=== PATIENT | female | born 1960 | race Caucasian/White ===

== ENCOUNTER 2018-01-23 06:20 | Observation (INO) | payer BC ==
[2018-01-23] MEDS: LACTATED RINGER'S 1,000 ML IV* (06:00)
[2018-01-23] MEDS ORDERED: BUPIVACAINE 0.5%/EPI (SDV) 30 ML INJ (07:05)
[2018-01-23] MEDS ORDERED: VASOPRESSIN 20 UNITS INJ (07:06)
[2018-01-23] MEDS ORDERED: SODIUM CL BACTERIOSTATIC 30 ML INJ (07:06)
[2018-01-23] MEDS ORDERED: MIDAZOLAM 1 MG/ML 2 ML INJ (07:37)
[2018-01-23] MEDS ORDERED: METOCLOPRAMIDE 10 MG INJ (07:38)
[2018-01-23] MEDS ORDERED: morphine SULFATE/PF (10 MG/10 ML) INJ (07:39)
[2018-01-23] MEDS ORDERED: BUPIVACAINE 0.75%/DEXT (SPINAL) 2 ML INJ (07:40)
[2018-01-23] MEDS: BUPIVACAINE 0.5%/EPI (SDV) 30 ML INJ INJ (08:25)
[2018-01-23] MEDS ORDERED: KETOROLAC 30 MG INJ IV (09:30)
[2018-01-23] MEDS ORDERED: NALOXONE (0.4 MG/ML) INJ IV (09:30)
[2018-01-23] MEDS ORDERED: HYDROmorphONE 0.5 MG/0.5 ML SYG IV ×2 (09:30)
[2018-01-23] MEDS ORDERED: DIPHENHYDRAMINE 50 MG INJ IV ×2 (09:30)
[2018-01-23] MEDS ORDERED: ONDANSETRON 4 MG INJ IV ×3 (09:30→10:00)
[2018-01-23] MEDS: metroNIDAZOLE 0.75% 70 GM VAG GEL VAG ×2 (09:30)
[2018-01-23] MEDS ORDERED: HYDROmorphONE 1 MG/ML SYG IV (09:30)
[2018-01-23] MEDS ORDERED: HYDROmorphONE (0.2 MG/ML) 10ML SYG IV ×3 (09:30)
[2018-01-23] MEDS ORDERED: MEPERIDINE 25 MG INJ IV (09:30)
[2018-01-23] MEDS ORDERED: PROPOFOL 20 ML (09:31)
[2018-01-23] MEDS ORDERED: CEFAZOLIN 1 GM INJ (09:31)
[2018-01-23] MEDS ORDERED: ONDANSETRON 4 MG INJ (09:31)
[2018-01-23] MEDS ORDERED: KETOROLAC 30 MG INJ (09:31)
[2018-01-23] MEDS ORDERED: EPHEDrine SULFATE 50 MG/5 ML SYG (09:37)
[2018-01-23] MEDS ORDERED: IBUPROFEN 600 MG TAB PO (10:00)
[2018-01-23] MEDS ORDERED: OXYCODONE/ACETAMINOPHEN (5/325) TAB PO (10:00)
[2018-01-23] MEDS: ACETAMINOPHEN 1000MG/100ML IV 100 ML IVPB (10:40)
[2018-01-23] MEDS: LACTATED RINGER'S 1,000 ML IV ×3 (12:39→23:35)
[2018-01-23] MEDS: CEFAZOLIN 2 GM/50 ML (PMX) 50 ML IVPB ×2 (14:53→21:58)
[2018-01-23] MEDS: ACETAMINOPHEN 325 MG TAB PO (23:46)
[2018-01-24] MEDS: KETOROLAC 30 MG INJ IV ×2 (03:12→11:53)
[2018-01-24 05:29] LABS: ADD MAN DIFF? NO; BASOPHILS % 0.4 % (0.0-2.0); EOSINOPHILS % 0.3 % (0.0-7.0); HEMATOCRIT 32.4 % (37.0-47.0); LYMPHOCYTES # 2.6 10^3/ul (0.8-2.9); LYMPHOCYTES % 33.7 % (15.0-51.0); MEAN CORPUSCULAR HEMOGLOBIN 31.9 pg (29.0-33.0); MEAN CORPUSCULAR VOLUME 93.9 fl (82.0-101.0); MONOCYTE # 0.5 10^3/ul (0.3-0.9); MONOCYTES % 6.4 % (0.0-11.0); NEUTROPHIL # 4.5 10^3/ul (1.6-7.5); NEUTROPHILS % 59.1 % (39.0-77.0); PLATELET COUNT 160 10^3/UL (140-415); RED BLOOD COUNT 3.45 10^6/ul (4.20-5.40); RED CELL DISTRIBUTION WIDTH 12.7 % (11.5-14.5)
[2018-01-24 05:29] LABS: WHITE BLOOD COUNT 7.7 10^3/ul (4.8-10.8)
[2018-01-24] MEDS: CEFAZOLIN 2 GM/50 ML (PMX) 50 ML IVPB (05:48)
[2018-01-24] MEDS: PANTOPRAZOLE 40 MG INJ IV (05:48)
[2018-01-24 05:59] LABS: ALANINE AMINOTRANSFERASE 26 IU/L (13-69); ALBUMIN 3.1 g/dl (3.3-4.9); ALBUMIN/GLOBULIN RATIO 1.06; ALKALINE PHOSPHATASE 62 IU/L (42-121); ANION GAP 12 (8-16); ASPARTATE AMINO TRANSFERASE 16 IU/L (15-46); BILIRUBIN,INDIRECT 0.3 mg/dl (0-1.1); BILIRUBIN,TOTAL 0.3 mg/dl (0.2-1.3); BLOOD UREA NITROGEN 12 mg/dl (7-20); CALCIUM 8.4 mg/dl (8.4-10.2); CARBON DIOXIDE 26 mmol/L (21-31); CHLORIDE 109 mmol/L (97-110); CREATININE 0.76 mg/dl (0.44-1.00); GLUCOSE 120 mg/dl (70-220); SODIUM 143 mmol/L (135-144)
[2018-01-24] MEDS: metFORMIN 500 MG TAB GTB (08:27)
[2018-01-24] MEDS: ENOXAPARIN 40 MG/0.4 ML SYG SC (14:07)
== END 2018-01-24 14:15 | disposition home or self-care (01) ==
LOC: REC 06:20 → MS1 11:10
PROVIDERS: Specialist
DX: N81.4 Uterovaginal prolapse, unspecified (principal); D25.1 Intramural leiomyoma of uterus; N85.8 Other specified noninflammatory disorders of uterus; N72 Inflammatory disease of cervix uteri; N88.8 Other specified noninflammatory disorders of cervix uteri; R87.612 Low grade squamous intraepithelial lesion on cytologic smear of cervix (LGSIL); E11.9 Type 2 diabetes mellitus without complications; I10 Essential (primary) hypertension; E03.9 Hypothyroidism, unspecified
CPT/HCPCS: 57240; 80053; 82962; 84703; 85025; 86850; 86900; 86901; 87086; 88305

== ENCOUNTER 2019-04-15 05:53 | Day surgery (SDC) | payer BC ==
[2019-04-15] MEDS ORDERED: FENTAnyl 50 MCG/ML VIAL (08:30)
[2019-04-15] MEDS ORDERED: MIDAZOLAM 1 MG/ML 2 ML INJ (08:30)
== END 2019-04-15 11:04 | disposition home or self-care (01) ==
LOC: GIL 05:53
DX: K92.1 Melena (principal); K64.8 Other hemorrhoids; E11.9 Type 2 diabetes mellitus without complications
CPT/HCPCS: 45378; 82962